=== PATIENT | female | born 1955 | race Caucasian/White ===

== ENCOUNTER 2016-09-22 09:52 | Day surgery (SDC) | payer BC ==
--- NOTE | ~2016-09-22 | EGD ---
EGD REPORT [facility] [address] [place]. [id number] NAME: ADRIENNE MUÑOZ : [birth year] STATUS : REG [facility]#: [id number] AGE: 61 ADM/REG DATE : 09/22/16 MR#: [id number] REPORT SERV DATE: 09/22/16 DICTATED BY: DANGELO MONTANO DATE: 09/22/16 REPORT STATUS : Draft TRANSCRIBED BY: [facility] DATE: 09/22/16 Endoscopy Center Patient Name: Adrienne Muñoz Date of : 1955 Attending MD: SYDNIE MONTANO MD Procedure Date No Time: 09/22/2016 Procedure: Colonoscopy Indications: High risk colon cancer surveillance: Personal history of colonic polyps Referring MD: ODESSA TONG MD, ROCIO ADAMS MD, BK RODRIGUEZ MD, PAT [place] MD Medicines: See the Anesthesia note for documentation of the administered medications Complications: No immediate complications. Estimated blood loss: None. Procedure: Pre-Anesthesia Assessment: - ASA Grade Assessment: III - A patient with severe systemic disease. - Prior to the procedure, a History and Physical was performed, and patient medications and allergies were reviewed. The patient's tolerance of previous anesthesia was also reviewed. The risks and benefits of the procedure and the sedation options and risks were discussed with the patient. All questions were answered, and informed consent was obtained. Prior Anticoagulants: The patient has taken no previous anticoagulant or antiplatelet agents. After reviewing the risks and benefits, the patient was deemed in satisfactory condition to undergo the procedure. After I obtained informed consent, the scope was passed under direct vision. Throughout the procedure, the patient's blood pressure, pulse, and oxygen saturations were monitored continuously. The PCF [id number] was introduced through the anus and advanced to the terminal ileum. The ileocecal valve, appendiceal orifice, terminal ileum and rectum were photographed. The entire colon was examined. The colonoscopy was performed without difficulty. The patient tolerated the procedure well. The quality of the bowel preparation was adequate. Findings: The perianal and digital rectal examinations were normal. The terminal ileum appeared normal. Non-bleeding internal hemorrhoids were found during retroflexion and were Grade I (internal hemorrhoids that do not prolapse). No other significant abnormalities were identified in a careful EGD REPORT [address] [address] NAME: ADRIENNE MUÑOZ : [birth year] STATUS : REG [facility]#: [id number] AGE: 61 ADM/REG DATE : 09/22/16 MR#: [id number] REPORT SERV DATE: 09/22/16 DICTATED BY: DANGELO MONTANO DATE: 09/22/16 REPORT STATUS : Draft TRANSCRIBED BY: [employer] DATE: 09/22/16 examination of the remainder of the colon. Impression: - The examined portion of the ileum was normal. - Non-bleeding internal hemorrhoids. Recommendation: - Patient has a contact number available for emergencies. The signs and symptoms of potential delayed complications were discussed with the patient. Return to normal activities tomorrow. Written discharge instructions were provided to the patient. - Regular diet. - Discharge patient to home. - Continue present medications. - Repeat colonoscopy is not recommended for surveillance. Procedure Code(s): --- Professional --- 91784, Colonoscopy, flexible, proximal to splenic flexure; diagnostic, with or without collection of specimen(s) by brushing or washing, with or without colon decompression (separate procedure) Diagnosis Code(s): --- Professional --- K64.0, First degree hemorrhoids Z86.010, Personal history of colonic polyps CPT copyright 2013 [employer]. All rights reserved. The codes documented in this report are preliminary and upon billing and insurance coordinator review may be revised to meet current compliance requirements. SYDNIE MONTANO MD 09/22/2016 11:30 AM This report has been signed electronically. Number of Addenda: 0 Note Initiated On: 09/22/2016 11:02 AM Scope Withdrawal Time 0 hours 6 minutes 31 seconds [address] [id number]
[~2016-09-22 09:52] MED LIST: ATV.5 PO; ATV1 PO; BACTRONASA NAS; DEX4 PO; DYNACIN100 M1 PO; ESTROGEN PATCH; FOLIC PO; IMMODLIQU PO; IMOD PO; KLOR-CON M2020 MEQ PO; L20 PO; LOM PO; MINIVELLE PATCH T; MINIVELLE1 EAC2 TOP; MINOCIN100 PO; PCET PO; PR25 PO; SPIRIVA INH; TARCEVA100 PO; ZOFRAN8 PO
== END 2016-09-22 23:59 | disposition home or self-care (01) ==
LOC: DMU 09:52
PROVIDERS: Internal Medicine Gastroenterology
PROC: 0DJD8ZZ Inspection of Lower Intestinal Tract, Via Natural or Artificial Opening Endoscopic (ICD-10-PCS; principal; 2016-09-22 11:30)
DX: K64.0 First degree hemorrhoids (principal); J44.9 Chronic obstructive pulmonary disease, unspecified; Z86.010 Personal history of colon polyps; Z12.11 Encounter for screening for malignant neoplasm of colon; Z85.44 Personal history of malignant neoplasm of other female genital organs; Z85.118 Personal history of other malignant neoplasm of bronchus and lung; Z85.841 Personal history of malignant neoplasm of brain; Z85.89 Personal history of malignant neoplasm of other organs and systems; Z90.710 Acquired absence of both cervix and uterus; Z88.1 Allergy status to other antibiotic agents; Z79.899 Other long term (current) drug therapy